=== PATIENT | male | born 1960 | race Two or more races ===

== ENCOUNTER 2017-07-05 17:06 | Emergency (ER) | payer OTHER ==
[~2017-07-05] VITALS: Ht 172.7 cm; Wt 96.6 kg
[~2017-07-05 17:06] MED LIST: BRIM0.159 OP; METO-169 PO; METO10TA3 PO; RAMI2.5C33 PO
[2017-07-05 17:30] VITALS: BP 121/77
== END 2017-07-06 02:08 | disposition home or self-care (01) ==
LOC: ER 17:06
DX: L08.9 Local infection of the skin and subcutaneous tissue, unspecified (principal); Z45.2 Encounter for adjustment and management of vascular access device

== ENCOUNTER → 2018-07-20 | Outpatient (CLI) | payer OTHER, MEDICAID ==
[~2018-07-20] MED LIST changes: +ASPI81CH43 PO; -BRIM0.159 OP; +INSLANTI SC; +PANT40T PO; +RANI-226 PO
== END | disposition home or self-care (01) ==
LOC: Rad HDHVI 07:20
PROVIDERS: ATTEND Internal Medicine
DX: I05.9 Rheumatic mitral valve disease, unspecified (principal); I10 Essential (primary) hypertension; R94.31 Abnormal electrocardiogram [ECG] [EKG]; R00.2 Palpitations
CPT/HCPCS: 93306; 93880

== ENCOUNTER → 2018-08-29 | Outpatient (CLI) | payer OTHER, MEDICAID ==
[~2018-08-29] VITALS: Ht 172.7 cm; Wt 95.3 kg
[~2018-08-29] MED LIST changes: +ADENOSINE 80 MG in GIVE UN-DILUTED 0 ML IV ONE; +ADENOSINE 90 MG/30 ML INJ IV ONE
== END | disposition home or self-care (01) ==
LOC: Rad HDHVI 13:22
PROVIDERS: ATTEND Internal Medicine Cardiovascular Disease
DX: I12.9 Hypertensive chronic kidney disease with stage 1 through stage 4 chronic kidney disease, or unspecified chronic kidney disease (principal); E11.22 Type 2 diabetes mellitus with diabetic chronic kidney disease; N18.9 Chronic kidney disease, unspecified; R94.31 Abnormal electrocardiogram [ECG] [EKG]; F32.9 Major depressive disorder, single episode, unspecified; E11.40 Type 2 diabetes mellitus with diabetic neuropathy, unspecified; E11.59 Type 2 diabetes mellitus with other circulatory complications; E78.5 Hyperlipidemia, unspecified; R00.2 Palpitations; R53.1 Weakness; I95.1 Orthostatic hypotension
CPT/HCPCS: 78452; 93005; 96374; 96375; A9500; J0153